=== PATIENT | female | born 1995 | race Caucasian/White ===

== ENCOUNTER 2020-02-06 10:33 | Outpatient (CLI) | payer OTHER, SELFPAY ==
--- NOTE | ~2020-02-06 | US_ITS ---
EXAMINATION: US OB <= 14 weeks fetus DATE: 02/06/2020 11:04 INDICATION: Gestational dating. TECHNIQUE: Real-time transabdominal and transvaginal obstetric ultrasound. FINDINGS: Automated exposure control and iterative reconstruction technique were employed. The uterus measures 11.3 x 7 x 7.9 cm. There is an intrauterine gestational sac, with pole iden tified. There is a small subchorionic hemorrhage measuring 11 x 7 x 4 mm. The crown rump length measu res 3.05, which correlates with a estimated gestational age of 10 weeks 0 days. heart tones a re identified measuring 165. Ovaries not visualized. IMPRESSION: 1. SL IUP with an EGA of 10 weeks, 0 days (EDC by current ultrasound of 09/03/2020). 2: Small subchorionic hemorrhage. Reviewed, dictated and finalized at location A. IMPRESSION: 1. SL IUP with an EGA of 10 weeks, 0 days (EDC by current ultrasound of 020). 2: Small subchorionic hemorrhage.
== END 2020-02-06 10:34 | disposition home or self-care (01) ==
LOC: ANHIMG 10:40
PROVIDERS: Visit Provider Obstetrics & Gynecology Gynecology
DX: Z36.87 Encounter for antenatal screening for uncertain dates (principal); Z3A.10 10 weeks gestation of pregnancy; O36.8911 Maternal care for other specified fetal problems, first trimester, fetus 1
CPT/HCPCS: 76801

== ENCOUNTER 2020-03-05 11:10 | Outpatient (CLI) | payer OTHER, SELFPAY ==
--- NOTE | ~2020-03-05 | US_ITS ---
EXAMINATION: US OB follow up DATE: 03/05/2020 11:38 INDICATION: Subchorionic hemorrhage follow-up, second trimester TECHNIQUE: Real-time ultrasound of the pelvis was performed. The interpreting radiologist was not pre sent for the study. COMPARISON: 02/06/2020 FINDINGS: There is a single living fetus in vertex presentation. The placenta is fundal. No persisten t subchorionic hematoma is identified. cardiac activity and movement are noted. hea rt rate is 163 beats per minute (bpm). The amniotic fluid index is subjectively normal. The following biometric data were obtained: Biparietal diameter (BPD): 2.7 cm; head circumference (HC): 10.3 cm; abdominal circumference (AC): 8. 4 cm; femur length (FL): 1.3 cm. Estimated weight is 96 g +/- 14 g, which correlates with the 24th percentile when 08/30/2020 is used as estimated date of delivery. As single measurements, these parameters are each equal to the following estimated gestational ages w ith ranges of +/- 2 standard deviations: BPD: 14 weeks 6 days ( 13 weeks 5 days - 16 weeks 1 days). HC: 14 weeks 6 days ( 13 weeks 5 days - 16 weeks 1 days). AC: 14 weeks 5 days ( 13 weeks 1 days - 16 weeks 3 days). FL: 13 weeks 6 days ( 12 weeks 4 days - 15 weeks 2 days). estimated gestational age based solely on measurements from this exam is 14 weeks 4 days +/- 1 weeks 0 days. IMPRESSION: 1. Single living fetus in vertex presentation. 2. No persistent subchorionic hematoma identified. Reviewed, dictated and finalized at location A.
== END 2020-03-05 11:11 | disposition home or self-care (01) ==
PROVIDERS: Visit Provider Obstetrics & Gynecology Gynecology
DX: O36.8920 Maternal care for other specified fetal problems, second trimester, not applicable or unspecified (principal)
CPT/HCPCS: 76816